=== PATIENT | male | born 1980 | race Caucasian/White ===

== ENCOUNTER 2017-04-17 13:42 | Emergency (ER) | payer OTHER ==
[~2017-04-17] VITALS: Ht 185.4 cm; Wt 81.6 kg
--- NOTE | 2017-04-17 16:00 | NUR ---
Pt placed in hallway(#1).
--- NOTE | 2017-04-17 17:07 | NUR ---
Pt moved to room 4b.
[2017-04-17] MEDS: TDAP DIPH,PERTUSS,TET VAC/PF 0.5 ML DISP.SYRIN IM ONE (18:16)
[2017-04-17] MEDS ORDERED: TDAP DIPH,PERTUSS,TET VAC/PF 0.5 ML DISP.SYRIN IM ONE (18:27)
--- NOTE | 2017-04-17 18:45 | NUR ---
Patient discharged to home in stable conditon. Written and verbal after care instructions given. Patient verbalizes understanding of instructions. Stressed follow up or return to ER for worsening s/s.
== END 2017-04-17 18:47 | disposition home or self-care (01) ==
LOC: ER 13:42
DX: S01.112A Laceration without foreign body of left eyelid and periocular area, initial encounter (principal); Z98.890 Other specified postprocedural states; W01.0XXA Fall on same level from slipping, tripping and stumbling without subsequent striking against object, initial encounter; Y92.89 Other specified places as the place of occurrence of the external cause; Y93.89 Activity, other specified; Y99.8 Other external cause status
CPT/HCPCS: 12011; 70450; 70486; 90471; 90715; 99284; A4217; A4663